=== PATIENT | female | born 2000 | race Caucasian/White ===

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

== ENCOUNTER 2018-12-05 12:40 | Observation (INO) | payer MEDICAID ==
[~2018-12-05] VITALS: Ht 167.6 cm; Wt 113.4 kg
== END 2018-12-05 14:15 | disposition home or self-care (01) ==
LOC: MLD 12:40
PROVIDERS: ADMIT Obstetrics & Gynecology; ATTEND Obstetrics & Gynecology
DX: O26.853 Spotting complicating pregnancy, third trimester (principal); O26.893 Other specified pregnancy related conditions, third trimester; R10.9 Unspecified abdominal pain; Z3A.33 33 weeks gestation of pregnancy
CPT/HCPCS: G0378

== ENCOUNTER 2019-04-05 18:52 | Emergency (ER) | payer MEDICAID ==
[~2019-04-05] VITALS: Ht 167.6 cm; Wt 108.0 kg
[~2019-04-05 18:52] MED LIST changes: -NITR100C1
[2019-04-05 19:01] VITALS: BP 114/58
--- NOTE | 2019-04-05 19:06 | NUR ---
PT AMB TO BED3
[2019-04-05] MEDS ORDERED: DICYCLOMINE HCL LIQUID 20 MG, ALUMINUM HYD/MAG/SIMETHICONE 30 ML, LIDOCAINE VISCOUS 2% ... PO ONE ×3 (19:20)
--- NOTE | 2019-04-05 19:26 | NUR ---
C/O N/V, EPIGASTRIC PAIN 7/10 ACHING RADIATING TO MID BACK X TODAY. ABD SOFT, FLAT, NONTENDER. BOWEL SOUNDS PRESENT X 4, NORMOACTIVE. RESPIS E/U, DENIES CP/SOB.
--- NOTE | 2019-04-05 19:30 | NUR ---
edmd at bedside
--- NOTE | 2019-04-05 19:46 | NUR ---
lab at bedside
[2019-04-05 19:47] LABS: BASOPHILS # (AUTO) 0.1 K/uL (0.00-0.22); BASOPHILS % (AUTO) 0.8 % (0.0-2.0); EOSINOPHILS # (AUTO) 0.1 K/uL (0-0.4); EOSINOPHILS % (AUTO) 0.7 % (0.0-4.0); HEMATOCRIT 30.2 % (36-48); HEMOGLOBIN 9.6 g/dL (12.0-16.0); LYMPHOCYTES # (AUTO) 2.9 K/uL (2.5-16.5); LYMPHOCYTES % (AUTO) 18.5 % (20.5-51.1); MEAN CORPUSCULAR HEMOGLOBIN 24 pg (27-31); MEAN CORPUSCULAR HGB CONC 32 g/dL (33-37); MEAN CORPUSCULAR VOLUME 73.9 fL (80-94); MONOCYTES # (AUTO) 0.6 K/uL (0.8-1.0); MONOCYTES % (AUTO) 4.1 % (1.7-9.3); NEUTROPHILS # (AUTO) 11.9 K/uL (1.8-7.7); NEUTROPHILS % (AUTO) 75.9 % (42.2-75.2); PLATELET COUNT (AUTO) 439 K/uL (140-450); RED BLOOD CELL COUNT(AUTO) 4.09 MIL/uL (4.20-5.40); RED CELL DISTRIBUTION WIDTH 16.2 % (11.6-13.7); WHITE BLOOD COUNT (AUTO) 15.7 K/uL (4.5-11.0)
[2019-04-05 19:49] LABS: APPEARANCE,URINE CLEAR (CLEAR); BILIRUBIN,URINE NEGATIVE (NEGATIVE); BLOOD, URINE NEGATIVE (NEGATIVE); COLOR,URINE YELLOW (YELLOW); LEUKOCYTE ESTERASE ,URINE NEGATIVE (NEGATIVE); NITRITE, URINE NEGATIVE (NEGATIVE); UGLUCOSE NEGATIVE (NEGATIVE)
[2019-04-05 20:19] LABS: ALBUMIN 3.5 g/dL (3.4-5.0); ANION GAP 11.6 (8-16); CARBON DIOXIDE 28.4 mmol/L (21-32); CREATININE 0.8 mg/dL (0.6-1.3); TOTAL BILIRUBIN 0.2 mg/dL (0.0-1.0)
[2019-04-05] MEDS ORDERED: KETOROLAC 30 MG/ML VIAL IM ONE (20:55)
[2019-04-05 21:15] VITALS: BP 116/84
--- NOTE | 2019-04-05 21:15 | NUR ---
Patient discharged with v/s stable. Written and verbal after care instructions given and explained. Patient alert, oriented and verbalized understanding of instructions. Ambulatory with steady gait. All questions addressed prior to discharge. ID band removed. Patient advised to follow up with PMD. Rx of MYLANTA AND NAPROSYN given. Patient educated on indication of medication including possible reaction and side effects. Opportunity to ask questions provided and answered.
== END 2019-04-05 21:15 | disposition home or self-care (01) ==
LOC: MED 18:52
DX: R10.13 Epigastric pain (principal); R11.10 Vomiting, unspecified; Z79.899 Other long term (current) drug therapy
CPT/HCPCS: 36415; 80053; 81003; 81025; 83690; 85025; 96372; 99283; J1885

== ENCOUNTER 2019-09-21 08:26 | Emergency (ER) | payer MEDICAID ==
[~2019-09-21] VITALS: Ht 167.6 cm; Wt 103.4 kg
[2019-09-21 08:37] VITALS: BP 143/99
--- NOTE | 2019-09-21 08:38 | NUR ---
Patient ambulated to bed 12. RN evaluating patient at bedside.
--- NOTE | 2019-09-21 08:48 | NUR ---
Dr. Peterson evaluating patient at bedside.
--- NOTE | 2019-09-21 08:51 | NUR ---
PATIENT PRESENTS TO ED WITH C/O OF UPPER ABD PAIN THAT RADIATES TO CHEST AND BACK. PT STATES PAIN OF 5/10 AND DESCRIBES PAIN OF FEELING LIKE PRESSURE. DENIES V/D; SKIN IS PINK/WARM/DRY; AAOX4 WITH EVEN AND STEADY GAIT; HR EVEN AND REGULAR; PT DENIES ANY FEVER, SOB, OR COUGH AT THIS TIME; VSS; PATIENT POSITIONED FOR COMFORT; HOB ELEVATED; BEDRAILS UP X2; BED DOWN. ER MD MADE AWARE OF PT STATUS. NKA. PMH:N/A RX:N/A
[2019-09-21] MEDS ORDERED: KETOROLAC 60 MG/2 ML VIAL IM ONE (08:55)
[2019-09-21] MEDS ORDERED: ONDANSETRON 4 MG ODT PO ONE (08:55)
[2019-09-21 09:17] VITALS: BP 139/96
--- NOTE | 2019-09-21 09:17 | NUR ---
Patient discharged with v/s stable. Written and verbal after care instructions given and explained. Patient alert, oriented and verbalized understanding of instructions. Ambulatory with steady gait. All questions addressed prior to discharge. ID band removed. Patient advised to follow up with PMD. Rx of motrin, prilosec, zofran given. Patient educated on indication of medication including possible reaction and side effects. Opportunity to ask questions provided and answered.
== END 2019-09-21 09:17 | disposition home or self-care (01) ==
LOC: MED 08:26
DX: R10.13 Epigastric pain (principal); R11.0 Nausea; R07.89 Other chest pain
CPT/HCPCS: 96372; 99283; J1885; Q0162

== ENCOUNTER 2019-11-28 13:25 | Emergency (ER) | payer MEDICAID ==
[~2019-11-28] VITALS: Ht 167.6 cm; Wt 118.4 kg
[2019-11-28 13:30] VITALS: BP 142/67
--- NOTE | 2019-11-28 14:04 | NUR ---
PT TO CHAIR C WITH STEADY GAIT
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
--- NOTE | 2019-11-28 14:29 | NUR ---
PA AT BEDSIDE
--- NOTE | 2019-11-28 14:32 | NUR ---
PT MOVED TO BED 4
[2019-11-28] MEDS ORDERED: HYDROcodone/APAP 7.5/325 MG 1 TAB PO ONE (14:35)
--- NOTE | 2019-11-28 14:41 | NUR ---
PT TO CT BY WHEELCHAIR
--- NOTE | 2019-11-28 16:06 | NUR ---
PT STATED NORCO MEDICATION GIVEN HAS HELPED RELIEVE HER PAIN, 01/09. PT RESTING COMFORTABLY, EYES CLOSED.
--- NOTE | 2019-11-28 16:09 | NUR ---
LAB AT BEDSIDE DRAWING ORDERED LAB WORK.
[2019-11-28 16:26] LABS: BASOPHILS # (AUTO) 0.1 K/uL (0.00-0.22); BASOPHILS % (AUTO) 1.1 % (0.0-2.0); EOSINOPHILS # (AUTO) 0.2 K/uL (0-0.4); EOSINOPHILS % (AUTO) 1.8 % (0.0-4.0); HEMOGLOBIN 11.2 g/dL (12.0-16.0); LYMPHOCYTES # (AUTO) 3.9 K/uL (2.5-16.5); LYMPHOCYTES % (AUTO) 34.6 % (20.5-51.1); MEAN CORPUSCULAR HEMOGLOBIN 25 pg (27-31); MEAN CORPUSCULAR HGB CONC 31 g/dL (33-37); MEAN CORPUSCULAR VOLUME 80.6 fL (80-94); MONOCYTES # (AUTO) 0.6 K/uL (0.8-1.0); MONOCYTES % (AUTO) 5.7 % (1.7-9.3); NEUTROPHILS # (AUTO) 6.3 K/uL (1.8-7.7); NEUTROPHILS % (AUTO) 56.8 % (42.2-75.2); PLATELET COUNT (AUTO) 423 K/uL (140-450); RED BLOOD CELL COUNT(AUTO) 4.47 MIL/uL (4.20-5.40); RED CELL DISTRIBUTION WIDTH 15.8 % (11.6-13.7); WHITE BLOOD COUNT (AUTO) 11.2 K/uL (4.8-10.8)
[2019-11-28 16:48] LABS: PROTHROMBIN TIME 9.2 secs (10.8-13.4)
[2019-11-28 16:49] LABS: ANION GAP 12.2 (8-16); CARBON DIOXIDE 25.7 mmol/L (21-32); CREATININE 0.6 mg/dL (0.6-1.3); POTASSIUM 3.9 mmol/L (3.5-5.1)
[2019-11-28 16:55] LABS: ALBUMIN 3.6 g/dL (3.4-5.0); TOTAL BILIRUBIN 0.2 mg/dL (0.0-1.0)
--- NOTE | 2019-11-28 18:16 | NUR ---
Patient discharged with v/s stable. Written and verbal after care instructions given and explained. Patient alert, oriented and verbalized understanding of instructions. Ambulatory with steady gait. All questions addressed prior to discharge. ID band removed. Patient advised to follow up with PMD. Rx of [place] and Ibuprofen given. Patient educated on indication of medication including possible reaction and side effects. Opportunity to ask questions provided and answered.
[2019-11-28 18:17] VITALS: BP 101/71
== END 2019-11-28 18:16 | disposition home or self-care (01) ==
LOC: MED 13:25
DX: S02.85XA Fracture of orbit, unspecified, initial encounter for closed fracture (principal); Y09 Assault by unspecified means; Y93.89 Activity, other specified; Y92.89 Other specified places as the place of occurrence of the external cause; Y99.8 Other external cause status
CPT/HCPCS: 36415; 70450; 70486; 80053; 81002; 81025; 85025; 85610; 85730; 99284

== ENCOUNTER 2021-07-31 09:57 | Emergency (ER) | payer MEDICAID ==
[~2021-07-31] VITALS: Ht 165.1 cm; Wt 107.0 kg
[2021-07-31 10:05] VITALS: BP 126/75
[2021-07-31] MEDS ORDERED: KETOROLAC 30 MG/ML VIAL IM ONE (10:20)
--- NOTE | 2021-07-31 10:22 | NUR ---
20 Y/O F BIB SELF FROM HOME, PT C/O R WRIST PAIN AFTER WORK RELATED INJURY ON 07/28/21. NO EDEMA, REDNESS, ABRASION OR LACERTATION AT SITE. ALSO C/O OF LIMITED ROM DUE TO PAIN. 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 CAP REFILL <3, NO LOSS OF SENSATION TO AREA. DENIES N/V/D; SKIN IS PINK/WARM/DRY; AAOX4 WITH EVEN AND STEADY GAIT; LUNGS CLEAR BL; HR EVEN AND REGULAR; PT DENIES ANY FEVER, CP, SOB, OR COUGH AT THIS TIME; PATIENT STATES PAIN OF 5/10 AT THIS TIME; VSS; PATIENT POSITIONED FOR COMFORT; HOB ELEVATED; BEDRAILS UP X2; BED DOWN. ER MD MADE AWARE OF PT STATUS. PMH: DENIES NKA MED: DENIES
--- NOTE | 2021-07-31 10:33 | NUR ---
X-Ray at bedside.
[2021-07-31 11:45] VITALS: BP 126/75
--- NOTE | 2021-07-31 11:46 | NUR ---
Patient discharged with v/s stable. Written and verbal after care instructions given and explained. Patient verbalized understanding. Ambulatory with steady gait. All questions addressed prior to discharge. Advised to follow up with PMD.
== END 2021-07-31 11:46 | disposition home or self-care (01) ==
LOC: MED 09:57
DX: M25.531 Pain in right wrist (principal)
CPT/HCPCS: 29125; 73110; 96372; 99283; J1885; Q0092

== ENCOUNTER 2021-10-28 22:21 | Emergency (ER) | payer MEDICAID ==
[~2021-10-28] VITALS: Ht 165.1 cm; Wt 99.8 kg
[2021-10-28 22:25] VITALS: BP 139/88
--- NOTE | 2021-10-28 22:28 | NUR ---
TO LOBBY A/W BED AMBULATORY
[2021-10-28 23:29] LABS: BASOPHILS # (AUTO) 0.1 K/uL (0.00-0.22); EOSINOPHILS # (AUTO) 0.2 K/uL (0-0.4); EOSINOPHILS % (AUTO) 2.1 % (0.0-4.0); HEMATOCRIT 37.2 % (36-48); HEMOGLOBIN 12.2 g/dL (12.0-16.0); LYMPHOCYTES # (AUTO) 4.4 K/uL (2.5-16.5); LYMPHOCYTES % (AUTO) 38.1 % (20.5-51.1); MEAN CORPUSCULAR HEMOGLOBIN 27 pg (27-31); MEAN CORPUSCULAR HGB CONC 33 g/dL (33-37); MONOCYTES # (AUTO) 0.7 K/uL (0.8-1.0); MONOCYTES % (AUTO) 6.1 % (1.7-9.3); NEUTROPHILS # (AUTO) 6.1 K/uL (1.8-7.7); NEUTROPHILS % (AUTO) 52.7 % (42.2-75.2); PLATELET COUNT (AUTO) 444 K/uL (140-450); RED BLOOD CELL COUNT(AUTO) 4.54 MIL/uL (4.20-5.40); RED CELL DISTRIBUTION WIDTH 14.2 % (11.6-13.7); WHITE BLOOD COUNT (AUTO) 11.6 K/uL (4.8-10.8)
[2021-10-28] MEDS ORDERED: KETOROLAC 30 MG/ML VIAL IM ONE (23:40)
[2021-10-28] MEDS ORDERED: HYDROcodone/APAP 5/325 MG 1 TAB TAB PO ONE (23:40)
[2021-10-28 23:43] LABS: APPEARANCE,URINE CLEAR (CLEAR); BILIRUBIN,URINE NEGATIVE (NEGATIVE); BLOOD, URINE 1+ (NEGATIVE); COLOR,URINE YELLOW (YELLOW); LEUKOCYTE ESTERASE ,URINE NEGATIVE (NEGATIVE); NITRITE, URINE NEGATIVE (NEGATIVE); UGLUCOSE NEGATIVE (NEGATIVE)
[2021-10-28 23:44] LABS: ALBUMIN 3.8 g/dL (3.4-5.0); ANION GAP 14.5 (8-16); CARBON DIOXIDE 29.3 mmol/L (21-32); CREATININE 0.6 mg/dL (0.6-1.3); POTASSIUM 3.8 mmol/L (3.5-5.1); TOTAL BILIRUBIN 0.2 mg/dL (0.0-1.0)
[2021-10-28 23:52] LABS: RBC,URINE 0-5 /HPF (0-5); WBC,URINE 0-5 /HPF (0-5)
--- NOTE | 2021-10-29 00:10 | NUR ---
21 YO/F BIB SELF W C/O EPIGASTRIC PAIN 7/10 SORE LIKE, RADIATING TO R BACKSIDE CONSTANT X 5 HOURS. PT DENIES ANY FEVERS, N/V/D. BOWEL SOUNDS PRESENT, ABDOMEN SOFT NON-TENDER. PT LAYING IN BED LOCKED IN LOWEST POSITION. VSS . BREATHING EVEN AND UNLBAORED. NAD NOTED, WILL CONTINUE TO MONITOR. PMH:DENIES NKA
--- NOTE | 2021-10-29 00:12 | NUR ---
EDUCATED PT ON CONTRAINDICATIONS OF TORADOL MEDICATION DURING . PT DENIES PREGANANCY REPORTS THERE IS NO CHANCE SHE IS LMP 10/09/21. PT OK WITH TORADOL ADMIN.
[2021-10-29] MEDS ORDERED: ACET-8386 PO (00:29)
[2021-10-29] MEDS ORDERED: NAPR-54 PO (00:29)
[2021-10-29 01:01] VITALS: BP 133/66
--- NOTE | 2021-10-29 01:01 | NUR ---
Patient discharged with v/s stable. Written and verbal after care instructions given and explained. Patient alert, oriented and verbalized understanding of instructions. Ambulatory with steady gait. All questions addressed prior to discharge. ID band removed. Patient advised to follow up with PMD. Rx of NAPROXEN,NORCO given. Patient educated on indication of medication including possible reaction and side effects. Opportunity to ask questions provided and answered.
== END 2021-10-29 01:01 | disposition home or self-care (01) ==
LOC: MED 22:21
DX: K80.20 Calculus of gallbladder without cholecystitis without obstruction (principal)
CPT/HCPCS: 36415; 80053; 81001; 83690; 85025; 87086; 96372; 99283; J1885

== ENCOUNTER 2021-11-05 21:07 | Emergency (ER) | payer MEDICAID ==
[~2021-11-05] VITALS: Ht 165.1 cm; Wt 95.3 kg
[~2021-11-05 21:07] MED LIST changes: +ACET-8386 PO; +NAPR-54 PO; -PREN-103
[2021-11-05 22:01] VITALS: BP 108/66
--- NOTE | 2021-11-06 00:03 | NUR ---
pt is not in lobby. called cell phone no answer.
--- NOTE | 2021-11-06 00:06 | NUR ---
pt called for in lobby and outside, no answer. called cell phone no answer.
--- NOTE | 2021-11-06 00:11 | NUR ---
PATIENT LEFT WITHOUT BEING SEEN BY DR. whitt. NO FURTHER CARE PROVIDED FOR PATIENT.
== END 2021-11-06 00:11 | disposition left against medical advice (07) ==
LOC: MED 21:07
DX: R51.9 Headache, unspecified (principal); Z53.21 Procedure and treatment not carried out due to patient leaving prior to being seen by health care provider

== ENCOUNTER 2022-04-20 22:38 | Emergency (ER) | payer MEDICAID ==
[~2022-04-20] VITALS: Ht 165.1 cm; Wt 111.6 kg
[2022-04-20 22:48] VITALS: BP 120/73
--- NOTE | 2022-04-20 22:51 | NUR ---
pt taken to bed 2.
--- NOTE | 2022-04-20 22:55 | NUR ---
21 YO/F PRESENT TO ED W C/O EPIGASTRIC PAIN RADITAING TO R AND BACK SHARP 05/09 INT X1 DAY,+ BLOATING, +N/V/D. PT TOOK PEPTO LAST NIGHT AND TYLENOL 0700 W/O RELIEF. PT DENIES FEVERS/CHILLS, CHEST PAIN, SOB, BLOOD IN EMESIS OR STOOL, OR URINARY SYMPTOMS. PT SITTING IN BED LOCKED IN LOWEST POSITION, BREATHING EVEN AND UNLABORED. WILL CONTINUE TO MONITOR. PMH: GALLSTONES ALLERGIES: DENIES
--- NOTE | 2022-04-20 23:02 | NUR ---
PT UNABLE TO PROVIDE URINE, PROVIDED W WATER.
[2022-04-20 23:25] LABS: BASOPHILS # (AUTO) 0.1 K/uL (0.00-0.22); EOSINOPHILS # (AUTO) 0.2 K/uL (0-0.4); EOSINOPHILS % (AUTO) 2.4 % (0.0-4.0); HEMATOCRIT 36.3 % (36-48); LYMPHOCYTES # (AUTO) 3.4 K/uL (2.5-16.5); LYMPHOCYTES % (AUTO) 36.1 % (20.5-51.1); MEAN CORPUSCULAR HEMOGLOBIN 27 pg (27-31); MEAN CORPUSCULAR HGB CONC 33 g/dL (33-37); MEAN CORPUSCULAR VOLUME 81.7 fL (80-94); MONOCYTES # (AUTO) 0.9 K/uL (0.8-1.0); MONOCYTES % (AUTO) 9.4 % (1.7-9.3); NEUTROPHILS # (AUTO) 4.8 K/uL (1.8-7.7); NEUTROPHILS % (AUTO) 51.1 % (42.2-75.2); PLATELET COUNT (AUTO) 439 K/uL (140-450); RED BLOOD CELL COUNT(AUTO) 4.45 MIL/uL (4.20-5.40); RED CELL DISTRIBUTION WIDTH 14.3 % (11.6-13.7); WHITE BLOOD COUNT (AUTO) 9.4 K/uL (4.8-10.8)
[2022-04-20 23:50] LABS: ANION GAP 13.4 (8-16); CARBON DIOXIDE 27.1 mmol/L (21-32); POTASSIUM 3.5 mmol/L (3.5-5.1)
[2022-04-20 23:51] LABS: ALBUMIN 3.9 g/dL (3.4-5.0); CREATININE 0.8 mg/dL (0.6-1.3); TOTAL BILIRUBIN 0.3 mg/dL (0.0-1.0)
[2022-04-21] MEDS: HYDROcodone/APAP 10/325 MG 1 TAB TAB PO ONE (00:08)
[2022-04-21] MEDS: ONDANSETRON 4 MG ODT PO ONE (00:09)
--- NOTE | 2022-04-21 00:10 | NUR ---
PT PLACED IN GOWN
[2022-04-21] MEDS ORDERED: ALUMINUM HYD/MAG/SIMETHICONE 30 ML UDC ONE (01:08)
[2022-04-21] MEDS ORDERED: DICYCLOMINE HCL LIQUID 10 MG/5 ML UDC ONE (01:08)
[2022-04-21] MEDS: DICYCLOMINE HCL LIQUID 20 MG, ALUMINUM HYD/MAG/SIMETHICONE 30 ML, LIDOCAINE VISCOUS 2% ... PO ONE ×3 (01:17)
--- NOTE | 2022-04-21 01:19 | NUR ---
NOTED GI COCKTAIL CANCELLATION FROM ERMD POST ADMINISTRATION. PER ERMD, OK FOR PT TO HAVE TAKEN GI COCKTAIL.
[2022-04-21 01:30] VITALS: BP 120/58
--- NOTE | 2022-04-21 01:42 | NUR ---
0130- Patient discharged with v/s stable. Written and verbal after care instructions given and explained. Patient verbalized understanding. Ambulatory with steady gait. All questions addressed prior to discharge. Advised to follow up with PMD.
== END 2022-04-21 01:30 | disposition home or self-care (01) ==
LOC: MED 22:38
DX: K80.20 Calculus of gallbladder without cholecystitis without obstruction (principal); R11.2 Nausea with vomiting, unspecified; R19.7 Diarrhea, unspecified; Z79.899 Other long term (current) drug therapy
CPT/HCPCS: 36415; 76705; 80053; 81002; 81025; 83605; 83690; 85025; 87040; 99284; Q0092; Q0162

== ENCOUNTER 2024-04-03 23:20 | Emergency (ER) | payer MEDICAID ==
[~2024-04-03] VITALS: Ht 165.1 cm; Wt 104.8 kg
[~2024-04-03 23:20] MED LIST changes: -ACET-8386 PO; +ACET-8905 PO; +NAPR-337 PO; -NAPR-54 PO
[2024-04-03 23:24] VITALS: BP 132/79; PULSE 75; RESP 18; TEMP 97.3; O2SAT 98
[2024-04-04] LABS: APPEARANCE,URINE SL CLOUDY (CLEAR); BILIRUBIN,URINE NEGATIVE (NEGATIVE); BLOOD, URINE 2+ (NEGATIVE); COLOR,URINE YELLOW (YELLOW); LEUKOCYTE ESTERASE ,URINE NEGATIVE (NEGATIVE); NITRITE, URINE NEGATIVE (NEGATIVE); PROTEIN,URINE NEGATIVE (NEGATIVE); UGLUCOSE NEGATIVE (NEGATIVE); UROBILINOGEN,URINE 0.2 EU/dL (0.2 - 1)
[2024-04-04 00:20] VITALS: O2SAT 98
[2024-04-04 00:24] LABS: BACTERIA,URINE >30 (MANY) /HPF (None Seen); MUCUS,URINE 1+ /LPF (None Seen); RBC,URINE 0-5 /HPF (0-5); SQUAMOUS EPITHELIAL CELL,UR 4-10 (MOD) /LPF (0-3 (FEW)); WBC,URINE 0-5 /HPF (0-5)
[2024-04-04] MEDS ORDERED: PHEN-1877 PO (00:55)
[2024-04-04] MEDS ORDERED: CIPR500T4 PO (00:55)
== END 2024-04-04 01:01 | disposition home or self-care (01) ==
LOC: MED 23:20
DX: N39.0 Urinary tract infection, site not specified (principal); Z79.899 Other long term (current) drug therapy
CPT/HCPCS: 81001; 81025; 87086; 99283